=== PATIENT | female | born 1965 ===

== ENCOUNTER 2017-03-14 12:47 | Emergency (ER) | payer OTHER ==
[2017-03-14 12:47] VITALS: BMI 29.5
[2017-03-14 12:56] VITALS: BP 102/68; PULSE 65; RESP 18; TEMP 97.5; O2SAT 99
--- NOTE | 2017-03-14 13:02 | C.PDOC ---
History Of Present Illness 51 y/o female c/o 2 weeks of pain to left 2nd and 5th mid phalanges s/p fall. pt taking ibuprofen with mild relief. no numbness or tingling, no weakness. Time Seen by Provider: 03/14/17 12:54 History Per: Patient Onset/Duration Of Symptoms: Days (14) Current Symptoms Are (Timing): Still Present Quality: "Pain" Severity: Moderate Exacerbating Factor(s): Movement Past Medical History Reviewed: Historical Data, Nursing Documentation, Vital Signs Vital Signs: Last Vital Signs Temp 97.5 F L 03/14/17 12:53 Pulse 65 03/14/17 12:53 Resp 18 03/14/17 12:53 BP 102/68 03/14/17 12:53 Pulse Ox 99 03/14/17 13:05 - Medical History PMH: Hyperthyroidism Denies: Chronic Kidney Disease Other Surgeries: thyroid - [facility] Procedures APPLICATION OF SPLINT (01/30/14) Family History: States: Unknown Family Hx - Social History Hx Tobacco Use: No Hx Alcohol Use: No Hx Substance Use: No - Immunization History Hx Tetanus Toxoid Vaccination: Yes Hx Influenza Vaccination: Yes Hx Pneumococcal Vaccination: Yes Review Of Systems Constitutional: Negative for: Fever, Chills Musculoskeletal: Positive for: Hand Pain (left second and fifth fingers) Skin: Negative for: Rash, Bruising Neurological: Negative for: Weakness, Numbness Physical Exam - Physical Exam Appears: Non-toxic, No Acute Distress Skin: Warm, Dry Extremity: Normal ROM, Other (left hand with tenderness and minimal swelling to left second and fifth middle phalanges, from of all fingers. normal capillary refill. skin intact. no ecchymoses. normal rom to left wrist, elbow and shoulder ) Pulses: Left Radial: Normal Neurological/Psych: Oriented x3, Normal Speech, Normal Cognition, Normal Motor, Normal Sensation ED Course And Treatment O2 Sat by Pulse Oximetry: 99 Disposition Counseled Patient/Family Regarding: Studies Performed, Diagnosis, Need For Followup - Disposition Disposition: HOME/ ROUTINE Disposition Time: 13:42 Condition: STABLE Additional Instructions: Wear finger splints for comfort. Continue taking ibupforen for pain if needed. If pain continues, follow up with Hand Doctor. Instructions: Finger Sprain (ED) Forms: Gen Discharge Inst Bhutanese - Clinical Impression Clinical Impression: Sprain of finger of left hand
--- NOTE | 2017-03-14 13:38 | RAD ---
Left hand three views History: Fall. Pain. Comparison: None available. Findings: No evidence for acute displaced fracture or dislocation. Mild narrowing of the 2nd through 5th PIP and DIP joint spaces. Productive change along the radial cortex of the distal radius. Impression: Degenerative changes. If pain persists, consider MRI.
== END 2017-03-14 13:50 | disposition home or self-care (01) ==
LOC: C.ER 12:47 → SUPCPDRO 12:47 → C.ER 13:50
DX: S63.611A Unspecified sprain of left index finger, initial encounter (principal); S63.617A Unspecified sprain of left little finger, initial encounter; W19.XXXA Unspecified fall, initial encounter; Y92.9 Unspecified place or not applicable

== ENCOUNTER 2018-09-09 08:03 | Emergency (ER) | payer OTHER ==
[2018-09-09 08:03] VITALS: BMI 29.5
[2018-09-09 08:13] VITALS: RESP 20
[2018-09-09] MEDS ORDERED: Sodium Chloride 0.9% 1,000 ML IV STA (08:41)
--- NOTE | 2018-09-09 08:52 | C.PDOC ---
History Of Present Illness Patient is a 52 year old female who presents to the ED for evaluation of heavier than normal menstruation that began 3 days ago. Patient reports using 6/7 pads per day. She has had 2 similar menses prior, both of which stopped. Her last known menses was 4 months ago. Her last OBGYN visit was in the previous year and has an upcoming annual appt. on 09/15 at [facility]. She denies weakness, headache, shortness of breath, or dizziness. OBGYN ([facility]) Time Seen by Provider: 09/09/18 08:27 Chief Complaint (Nursing): Female Genitourinary History Per: Patient History/Exam Limitations: no limitations Onset/Duration Of Symptoms: Days (3 days ) Current Symptoms Are (Timing): Still Present Recent travel outside of the [place] States: No Additional History Per: Patient Abnormal Vaginal Bleeding: Yes Last Menstral Period: 4 months ago Past Medical History Reviewed: Historical Data, Nursing Documentation, Vital Signs Vital Signs: Last Vital Signs Temp 98.4 F 09/09/18 08:06 Pulse 105 H 09/09/18 08:06 Resp 20 09/09/18 08:06 BP 133/83 09/09/18 08:06 Pulse Ox 98 09/09/18 08:06 - Medical History PMH: Hyperthyroidism Denies: Chronic Kidney Disease Surgical History: No Surg Hx - [facility] Procedures APPLICATION OF SPLINT (01/30/14) Family History: States: Unknown Family Hx - Social History Hx Tobacco Use: No Hx Alcohol Use: No Hx Substance Use: No - Immunization History Hx Tetanus Toxoid Vaccination: Yes Hx Influenza Vaccination: Yes Hx Pneumococcal Vaccination: Yes Review Of Systems Except As Marked, All Systems Reviewed And Found Negative. Constitutional: Negative for: Weakness Respiratory: Negative for: Shortness of Breath Genitourinary: Positive for: Vaginal Bleeding Neurological: Negative for: Dizziness Physical Exam - Physical Exam Appears: Non-toxic, No Acute Distress Skin: Normal Color, Warm, Dry, No Pale Head: Atraumatic, Normacephalic Eye(s): bilateral: Normal Inspection Oral Mucosa: Moist Neck: Supple Chest: Symmetrical Cardiovascular: Rhythm Regular Respiratory: Normal Breath Sounds Gastrointestinal/Abdominal: Soft, Tenderness (suprapubic) Neurological/Psych: Oriented x3 ED Course And Treatment - Laboratory Results Result Diagrams: 09/09/18 09:14 09/09/18 09:14 O2 Sat by Pulse Oximetry: 98 (on RA) Pulse Ox Interpretation: Normal - CT Scan/US Ultrasound Pelvis Other Rad Studies (CT/US): Read By Radiologist, Radiology Report Reviewed CT/US Interpretation: 12:16 US Findings. FINDINGS: UTERUS: Measures 15.0 x 8.7 x 10.6 cm. Anteverted an enlarged. There is a 2.5 x 2.2 x 2.5 cm anterior wall intramural fibroid in the midbody of the uterus, 5.5 x 5.8 x 5.0 cm i ntramural fundal fibroid and 3.4 x 2.2 x 2.9 cm subserosal fundal fibroid. ENDOMETRIUM: Measures 28 mm in diameter. The central endometrial echo complex is markedly thickened. CERVIX: No cervical abnormality identified. RIGHT OVARY: Not visualized. LEFT OVARY: Measures 2.5 x 2.1 x 2.9 cm. No solid mass. Normal flow. FREE FLUID: No significant free fluid noted. OTHER FINDINGS: None. IMPRESSION: Enlarged fibroid uterus, the largest fundal fibroid measures 5.5 x 5.8 x 5.0 cm. Progress Note: Labs, Urine HCG, Urinalysis and US Pelvis ordered. IV Fluids given. 11:04 Labs reviewed. No clinically significant findings. 12:09 Patient informed of ultransound findings. Patient instructed to follow up with OBGYN appt. on Sep.15. [place] for discharge. Disposition - Disposition Disposition: HOME/ ROUTINE Disposition Time: 12:09 Condition: STABLE Additional Instructions: Follow up with your PMD and OBGYN om 09/15/2018 as instructed. Return to ED if feel worse. Prescriptions: Calcium Carbonate/Vitamin D3 [Calcium 500 + Vit D Caplet] 1 each PO DAILY #30 tablet Instructions: Uterine Fibroids (DC), Heavy Periods (DC) Forms: [email or web address] (Khmer) Print Language: UZBEK - Clinical Impression Clinical Impression: Uterine fibroid, Vaginal bleeding - PA / ANTIQUE DEALER / Resident Statement MD/DO has reviewed & agrees with the documentation as recorded. - Scribe Statement The provider has reviewed the documentation as recorded by the Leola Santana All medical record entries made by the Aniibe were at my direction and personally dictated by me. I have reviewed the chart and agree that the record accurately reflects my personal performance of the history, physical exam, medical decision making, and the department course for this patient. I have also personally directed, reviewed, and agree with the discharge instructions and disposition.
[2018-09-09] MEDS ORDERED: Sodium Chloride 0.9% 1,000 ML ONE (08:54)
[2018-09-09 09:19] LABS: BASO % 0.8 % (0.0-2.0); EOS # 0.1 K/uL (0.0-0.7); EOS % 1.3 % (0.0-4.0); HEMOGLOBIN 10.9 g/dL (11.0-16.0); LYMPH # 1.2 K/uL (1.0-4.3); LYMPH % 19.9 % (20.0-40.0); MEAN CORPUSCULAR HEMOGLOBIN 31.7 pg (27.0-31.0); MEAN CORPUSCULAR HGB CONC 33.3 g/dL (33.0-37.0); MEAN PLATELET VOLUME 9.5 fL (7.2-11.7); MONO # 0.5 K/uL (0.0-0.8); MONO % 8.6 % (0.0-10.0); NEUT % 69.4 % (50.0-75.0); RBC 3.45 Mil/uL (3.80-5.20); RED CELL DISTRIBUTION WIDTH 14.9 % (11.5-14.5)
[2018-09-09 09:20] LABS: WHITE BLOOD COUNT 5.8 K/uL (4.8-10.8)
[2018-09-09 09:25] LABS: INR 1.1; PROTHROMBIN TIME 12.3 SECONDS (9.7-12.2)
[2018-09-09 09:36] LABS: ALB/GLOB RATIO 1.2 (1.0-2.1); BLOOD UREA NITROGEN 10 mg/dL (7-17); CALCIUM 7.9 mg/dl (8.6-10.4); GFR NON-AFRICAN AMERICAN > 60
[2018-09-09 09:37] LABS: HCG,QUALITATIVE URINE NEGATIVE (NEGATIVE)
[2018-09-09 09:38] LABS: ALT/SGPT 12 U/L (9-52); AST/SGOT 24 U/L (14-36)
[2018-09-09 09:40] LABS: SQUAMOUS EPITHIAL 14 /hpf (0-5); URINE BILIRUBIN NEGATIVE (NEGATIVE); URINE BLOOD 3+ (NEGATIVE); URINE CLARITY Hazy (Clear); URINE COLOR Amber (YELLOW); URINE GLUCOSE (UA) NORMAL (Normal); URINE LEUKOCYTE ESTERASE 1+ Leu/uL (Negative); URINE PROTEIN 3+ mg/dL (NEGATIVE)
--- NOTE | 2018-09-09 11:28 | US ---
Date of service: 09/09/2018 HISTORY: Perimenopausal bleeding COMPARISON: 05/17/2015. TECHNIQUE: Transabdominal and transvaginal pelvic ultrasound was performed. FINDINGS: UTERUS: Measures 15.0 x 8.7 x 10.6 cm. Anteverted an enlarged. There is a 2.5 x 2.2 x 2.5 cm anterior wall intramural fibroid in the midbody of the uterus, 5.5 x 5.8 x 5.0 cm intramural fundal fibroid and 3.4 x 2.2 x 2.9 cm subserosal fundal fibroid. ENDOMETRIUM: Measures 28 mm in diameter. The central endometrial echo complex is markedly thickened. CERVIX: No cervical abnormality identified. RIGHT OVARY: Not visualized. LEFT OVARY: Measures 2.5 x 2.1 x 2.9 cm. No solid mass. Normal flow. FREE FLUID: No significant free fluid noted. OTHER FINDINGS: None. IMPRESSION: Enlarged fibroid uterus, the largest fundal fibroid measures 5.5 x 5.8 x 5.0 cm. Thick heterogeneous central endometrial echo complex is abnormal for postmenopausal status. The differential considerations include endometrial hyperplasia and endometrial carcinoma. Clinical follow-up is advised and if clinically indicated correlation with endometrial sampling may be performed.
[2018-09-09 11:33] VITALS: BP 109/64; PULSE 71; TEMP 98.3
[2018-09-09 12:12] VITALS: O2SAT 98
== END 2018-09-09 12:19 | disposition home or self-care (01) ==
LOC: C.ER 08:03
DX: D25.9 Leiomyoma of uterus, unspecified (principal); N93.9 Abnormal uterine and vaginal bleeding, unspecified; E05.90 Thyrotoxicosis, unspecified without thyrotoxic crisis or storm
CPT/HCPCS: 76830; 76856; 80053; 81001; 84703; 85025; 85610; 86850; 86900; 96360; 99285; J7030

== ENCOUNTER 2018-10-04 07:47 | Outpatient (CLI) | payer OTHER | END 2018-10-04 07:48 | disposition home or self-care (01) | LOC: C.USIC 07:48 ==

== ENCOUNTER 2018-12-16 07:53 | Outpatient (CLI) | payer OTHER | END 2018-12-16 07:54 | disposition home or self-care (01) | LOC: C.MAMMO 07:53 ==